=== PATIENT | female | born 1955 | race Caucasian/White ===

== ENCOUNTER 2018-12-18 08:27 | Day surgery (SDC) | payer BC ==
[2018-12-17 16:32] VITALS: BMI 36.7
--- NOTE | 2018-12-18 13:09 | OP ---
DATE OF PROCEDURE: 12/18/2018 PREPROCEDURE DIAGNOSIS: Family history of brother with colorectal cancer, previous colonoscopy 5 years ago normal. POSTPROCEDURE DIAGNOSIS: Small internal hemorrhoids, otherwise normal colonoscopy. RECOMMENDATIONS: Repeat colonoscopy in 5 years for family history. ANESTHESIA: TIVA. DESCRIPTION OF PROCEDURE: The patient was informed of the risks, benefits, possible complications of endoscopy including perforation, reaction to medication, and aspiration, informed consent was obtained. The patient was brought to the Endoscopy Suite, where she was sedated in gradual fashion. Once she was comfortable, rectal exam was performed, which was normal. The endoscope was advanced through the anal canal into the colon to the cecum, which was identified by ileocecal valve and appendiceal orifice. The prep was good. The scope was then slowly removed with good visualization of mucosa. Withdrawal time was about 12 minutes. Due to a tortuous colon, we used i-SCAN. Retroflexed views in the rectum revealed small internal hemorrhoids. The scope was removed. The patient tolerated the procedure well with no complications. On postprocedure diagnosis, please note small internal hemorrhoid. We would manage symptomatically with high-fiber diet if she is doing p.r.n. topical steroids Job ID: [id number]
[2018-12-18] MEDS ORDERED: Lidocaine 1% PF 5 ML VIAL ONE (14:35)
[2018-12-18] MEDS ORDERED: PROPOFOL 200 MG/20 ML VIAL ONE (14:35)
== END 2018-12-18 12:05 | disposition home or self-care (01) ==
LOC: SDC 08:27
PROVIDERS: ATTEND Internal Medicine Gastroenterology
PROC: 0DJD8ZZ Inspection of Lower Intestinal Tract, Via Natural or Artificial Opening Endoscopic (ICD-10-PCS; principal; 2018-12-18)
DX: Z12.11 Encounter for screening for malignant neoplasm of colon (principal); K64.8 Other hemorrhoids; K63.89 Other specified diseases of intestine; Z80.0 Family history of malignant neoplasm of digestive organs
CPT/HCPCS: J2001; J2704

== ENCOUNTER 2020-08-11 08:39 | Outpatient (CLI) | payer OTHER ==
--- NOTE | 2020-08-11 12:51 | MRI ---
MRI OF THE LEFT SHOULDER WITHOUT CONTRAST: HISTORY: Fall. COMPARISON: Shoulder radiographs of 07/02/2020. FINDINGS: BICEPS TENDON: Extraarticular dislocation of the biceps tendon through an insufficient biceps lolis. Moderate intr aarticular and extraarticular tendonosis. Extensive fluid within the biceps tendon sheath. LABRUM: There us chondrolabral junctional tear throughout the posterior labrum. Superior labrum appears to b e relatively intact. ROTATOR CUFF: Full-thickness, full-width tear supraspinatus tendon at the footprint with a minimal 2 mm gap. There is some bridging scar in situ. Infraspinatus tendon is intact. High-grade tendinosis and mild interstitial tearing of the subscapularis tendon. SOFT TISSUES: There is a mild joint effusion. A large subacromial subdeltoid bursa effusion. Abnormal edema withi n the posterior band and glenohumeral ligament. Abnormal edema within the rotator interval. MUSCLES: Some mild edema within the subscapularis muscle belly. No significant atrophy. Mild supraspinatus e maryjo. BONES: Type II acromion. Moderate degenerative disease of the acromioclavicular joint. IMPRESSION: 1. Extraarticular biceps tendon dislocation through tear of the superior glenohumeral ligament and c orpal humeral ligament portions of the biceps lolis. 2. Full-thickness full-width supraspinatus tendon tear from the footprint with minimal 2-3 mm gap wi th some scar tissue and granulation tissue in situ. 3. Mild edema within the subscapularis and supraspinatus muscles indicating recent myotendinous drai ns. 4. Moderate joint effusion as well as large subacromial subdeltoid bursa effusion may be posttraumat ic in nature. 5. Low-grade strain of the posterior vein and glenohumeral ligament, a partial tear which appears to be healing. POS: OFF
== END 2020-08-11 08:40 | disposition home or self-care (01) ==
LOC: MRI 08:39
PROVIDERS: ATTEND Family Medicine
DX: S46.912D Strain of unspecified muscle, fascia and tendon at shoulder and upper arm level, left arm, subsequent encounter (principal); R60.0 Localized edema; M25.412 Effusion, left shoulder; M75.122 Complete rotator cuff tear or rupture of left shoulder, not specified as traumatic; L90.5 Scar conditions and fibrosis of skin; W19.XXXD Unspecified fall, subsequent encounter